=== PATIENT | female | born 1975 | race Caucasian/White ===

== ENCOUNTER 2017-02-24 16:17 | Emergency (ER) | payer SELFPAY ==
[~2017-02-24] VITALS: Ht 165.1 cm; Wt 80.0 kg
[~2017-02-24 16:17] MED LIST: IBUP-232 PO; LORT5TAB PO; Z.0.NO CURRENT MEDS
[2017-02-24 16:29] VITALS: BP 112/60; PULSE 75; RESP 18; TEMP 98.8; O2SAT 100
[2017-02-24] MEDS ORDERED: SODIUM CHLOR 0.9% 1000 ML INJ 1,000 ML IV SCH (18:41)
--- NOTE | 2017-02-24 18:41 | PD ---
HPI Chief Complaint: Abdominal Pain Time Seen by Provider: 18:29 Travel History International Travel<30 days: No Contact w/Intl Traveler<30days: No Traveled to known affect area: No History of Present Illness HPI 42-year-old female presents to the emergency Department with complaint of right lower quadrant abdominal pain that onset at approximately 2 PM today. Denies fever. Reports nausea without vomiting. Denies change in stool, dysuria, urgency, frequency. Denies vaginal discharge, odor. Has not taken any medications to alleviate her symptoms. Tried applying ice to the area with no relief. Reports her pain is aggravated when she was driving in the car using her right leg and going over bumps. History of complete hysterectomy, cholecystectomy, and gastric bypass. Allergies to sulfa, acetaminophen, morphine, oxycodone. Has no other medical complaints. Symptoms are moderate in severity. No other modifying factors or associated signs and symptoms. PFSH Past Medical History Bipolar Disorder: Yes Diminished Hearing: No Gastrointestinal Disorders: Yes (IBS) Reproductive: Yes (endometriosis) ?: Not : 3 Para: 2 Miscarriage: 1 Dilation and Curettage (D&C): Yes (05/05/09) Tubal Ligation: Yes Past Surgical History Cholecystectomy: Yes Hysterectomy: Yes Other Surgery: Yes (LAPROSCOPY 2007 AND 05/05/09) Social History Alcohol Use: No Tobacco Use: Yes (05/31 PPD) Substance Use: No Allergies-Medications (Allergen,Severity, Reaction): Coded Allergies: Sulfa (Sulfonamide Antibiotics) (Unverified Allergy, Severe, SOB, 02/24/17) acetaminophen (Verified Allergy, Severe, RASH, 02/24/17) morphine (Verified Allergy, Severe, ABDOMINAL PAIN , 02/24/17) oxycodone (Verified Allergy, Severe, RASH, 02/24/17) Reported Meds & Prescriptions Reported Meds & Active Scripts Active Lortab 5/500 (Acetaminophen/Hydrocodone Bitart) 5 Mg/500 Mg Tab 1 Tab PO Q4HPRN FOR PAIN Motrin (Ibuprofen) 600 Mg Tab 600 Mg PO TID Reported No Current Meds (Miscellaneous Medication) Misc Review of Systems Except as stated in HPI: all other systems reviewed are Neg Physical Exam Narrative GENERAL: Well-nourished, well-developed female patient, in no acute distress; afebrile; nontoxic appearing SKIN: Warm and dry. HEAD: Atraumatic. Normocephalic. EYES: Pupils equal and round. No scleral icterus. No injection or drainage. ENT: Mucosa pink and moist. Airway patent. NECK: Trachea midline. CARDIOVASCULAR: Regular rate and rhythm. No murmur appreciated. RESPIRATORY: No accessory muscle use. Clear to auscultation. Breath sounds equal bilaterally. GASTROINTESTINAL: Abdomen soft, tenderness on palpation to right lower quadrant , nondistended. Hepatic and splenic margins not palpable. Bowel sounds are active 4 quadrants. Nonrigid. With guarding. BACK: No CVA tenderness. MUSCULOSKELETAL: No obvious deformities. No clubbing. No cyanosis. No edema. NEUROLOGICAL: Awake and alert. Oriented 3. No obvious cranial nerve deficits. Motor grossly within normal limits. Normal speech. PSYCHIATRIC: Appropriate mood and affect; insight and judgment normal. Data Data Last Documented VS Vital Signs Date Time Temp Pulse Resp B/P (MAP) Pulse Ox O2 Delivery O2 Flow Rate FiO2 02/24/17 19:18 98 02/24/17 16:29 98.8 75 18 Room Air Orders Orders Complete Blood Count With Diff (02/24/17 18:41) Comprehensive Metabolic Panel (02/24/17 18:41) Lipase (02/24/17 18:41) Prothrombin Time / Inr (Pt) (02/24/17 18:41) Act Partial Throm Time (Ptt) (02/24/17 18:41) Urinalysis - C+S If Indicated (02/24/17 18:41) Ct Abd/Pel W Iv Contrast(Rout) (02/24/17 18:41) Iv Access Insert/Monitor (02/24/17 18:41) Ecg Monitoring (02/24/17 18:41) Oximetry (02/24/17 18:41) Ondansetron Inj (Zofran Inj) (02/24/17 18:45) Sodium Chlor 0.9% 1000 Ml Inj (Ns 1000 M (02/24/17 18:41) Sodium Chloride 0.9% Flush (Ns Flush) (02/24/17 18:45) Ketorolac Inj (Toradol Inj) (02/24/17 18:45) Ed Urine Pregnancytest Poc (02/24/17 18:41) Oral Contrast - Adult (02/24/17 18:47) Diatrizoate Liq (Md [place] Hanson) (02/24/17 19:21) Labs Laboratory Tests Test 02/24/17 19:00 White Blood Count 5.3 TH/MM3 Red Blood Count 3.72 MIL/MM3 Hemoglobin 12.3 GM/DL Hematocrit 36.8 % Mean Corpuscular Volume 99.0 FL Mean Corpuscular Hemoglobin 33.0 PG Mean Corpuscular Hemoglobin Concent 33.3 % Red Cell Distribution Width 13.8 % Platelet Count 160 TH/MM3 Mean Platelet Volume 10.3 FL Neutrophils (%) (Auto) 52.0 % Lymphocytes (%) (Auto) 37.9 % Monocytes (%) (Auto) 6.8 % Eosinophils (%) (Auto) 2.6 % Basophils (%) (Auto) 0.7 % Neutrophils # (Auto) 2.8 TH/MM3 Lymphocytes # (Auto) 2.0 TH/MM3 Monocytes # (Auto) 0.4 TH/MM3 Eosinophils # (Auto) 0.1 TH/MM3 Basophils # (Auto) 0.0 TH/MM3 CBC Comment DIFF FINAL Differential Comment Prothrombin Time 10.7 SEC Prothromb Time International Ratio 1.0 RATIO Activated Partial Thromboplast Time 27.4 SEC Urine Color YELLOW Urine Turbidity CLEAR Urine pH 6.5 Urine Specific Thermal 1.027 Urine Protein TRACE mg/dL Urine Glucose (UA) NEG mg/dL Urine Ketones NEG mg/dL Urine Occult Blood NEG Urine Nitrite NEG Urine Bilirubin NEG Urine Urobilinogen 2.0 MG/DL Urine Leukocyte Esterase NEG Urine RBC 3 /hpf Urine WBC 1 /hpf Urine Squamous Epithelial Cells <1 /hpf Urine Mucus FEW /lpf Microscopic Urinalysis Comment CULT NOT INDICATED Blood Urea Nitrogen 18 MG/DL Creatinine 1.17 MG/DL Random Glucose 87 MG/DL Total Protein 6.5 GM/DL Albumin 3.4 GM/DL Calcium Level 8.2 MG/DL Alkaline Phosphatase 47 U/L Aspartate Amino Transf (AST/SGOT) 9 U/L Alanine Aminotransferase (ALT/SGPT) 13 U/L Total Bilirubin 0.2 MG/DL Sodium Level 141 MEQ/L Potassium Level 4.1 MEQ/L Chloride Level 109 MEQ/L Carbon Dioxide Level 27.0 MEQ/L Anion Gap 5 MEQ/L Estimat Glomerular Filtration Rate 51 ML/MIN Lipase 113 U/L [facility] Medical Decision Making Medical Screen Exam Complete: Yes Emergency Medical Condition: Yes Medical Record Reviewed: Yes Differential Diagnosis Appendicitis, gastritis, Narrative Course 42-year-old female with right lower quadrant abdominal pain. Patient is afebrile and nontoxic-appearing. Denies fever. Reports nausea without vomiting. History of complete hysterectomy, cholecystectomy, and gastric bypass. IV site obtained. CBC, CMP, lipase, urinalysis, UPT, CT abdomen/ pelvis ordered. Toradol, normal saline bolus, Zofran administered in the ER. 1957: CBC, CMP, lipase, coags, urinalysis unremarkable. 2100: Report given to Marquise Cao PAC. See his note for final patient disposition. Thania Maldonado Feb 24, 2017 18:41
[2017-02-24] MEDS ORDERED: KETOROLAC TROMETHAMINE 30 MG/ML (IVP) VIAL IVP ONE (18:45)
[2017-02-24] MEDS ORDERED: SODIUM CHLORIDE 0.9% FLUSH 10 ML FLUSH IV FLUSH PRN (18:45)
[2017-02-24] MEDS ORDERED: ONDANSETRON HCL 4 MG/2 ML VIAL IVP ONE (18:45)
[2017-02-24 19:18] VITALS: O2SAT 98
[2017-02-24] MEDS ORDERED: DIATRIZOATE MEGLUM/DIATRIZOATE SOD 9 ML CUP ONE (19:21)
[2017-02-24 19:29] LABS: BLOOD, URINE NEG (NEG); COMMENT (UR) CULT NOT INDICATED; CULTURE IF INDICATED CULT NOT INDICATED; GLUCOSE,URINE NEG (NEG); KETONE, URINE NEG (NEG); MUCUS URINE FEW /lpf (OCC); NITRITE,URINE NEG (NEG); PH, URINE 6.5 (5.0-8.5); SQUAMOUS EPITHELIAL CELL URINE <1 /hpf (0-5); URINE COLOR YELLOW (YELLW/STRAW)
[2017-02-24 19:30] LABS: AUTOMATED NEUTROPHIL # 2.8 TH/MM3 (1.8-7.7); BASOPHIL % 0.7 % (0.0-2.0); EOSINOPHIL # 0.1 TH/MM3 (0-0.4); EOSINOPHIL % 2.6 % (0.0-4.0); HEMATOCRIT 36.8 % (35.0-46.0); HEMO FLAGS DIFF FINAL; LYMPH % 37.9 % (9.0-44.0); MEAN CORPUSCULAR HGB CONC 33.3 % (32.0-36.0); MONO % 6.8 % (0.0-8.0); PLATELET COUNT 160 TH/MM3 (150-450); RED BLOOD COUNT 3.72 MIL/MM3 (4.00-5.30); RED CELL DISTRIBUTION WIDTH 13.8 % (11.6-17.2); WHITE BLOOD COUNT 5.3 TH/MM3 (4.0-11.0)
[2017-02-24 19:40] LABS: APTT (PATIENT) 27.4 SEC (24.3-30.1); PROTHROMBIN TIME - PATIENT 10.7 SEC (9.8-11.6)
[2017-02-24 19:53] LABS: ALT (GPT) 13 U/L (10-53); ANION GAP 5 MEQ/L (5-15); AST (GOT) 9 U/L (15-37); BLOOD UREA NITROGEN 18 MG/DL (7-18); CHLORIDE 109 MEQ/L (98-107); GLOMERULAR FILTRATION RATE 51 ML/MIN (>89); POTASSIUM 4.1 MEQ/L (3.5-5.1); SODIUM (NA) 141 MEQ/L (136-145)
[2017-02-24 19:56] LABS: ALKALINE PHOSPHATASE 47 U/L (45-117); TOTAL BILIRUBIN ADULT 0.2 MG/DL (0.2-1.0)
[2017-02-24] MEDS ORDERED: IOHEXOL 350 MG/ML 10 ML VIAL (for RAD DIAG) IVCONTRAST ONE (20:44)
--- NOTE | 2017-02-24 21:02 | RADRPT ---
EXAM DATE/TIME: 02/24/2017 20:40 [place] COMPARISON: No previous studies available for comparison. INDICATIONS : Right lower quadrant pain. IV CONTRAST: 86 cc Omnipaque 350 (iohexol) IV ORAL CONTRAST: Prescribed oral contrast ingested. RADIATION DOSE: 11.77 CTDIvol (mGy) MEDICAL HISTORY : None SURGICAL HISTORY : Cholecystectomy. Tubal ligation.Hysterectomy. ENCOUNTER: Initial ACUITY: 1 day PAIN SCALE: 6/10 LOCATION: Right lower quadrant TECHNIQUE: Volumetric scanning of the abdomen and pelvis was performed. Using automated exposure control and ad justment of the mA and/or kV according to patient size, radiation dose was kept as low as reasonably achievable to obtain optimal diagnostic quality images. DICOM format image data is available electro nically for review and comparison. FINDINGS: LOWER LUNGS: The visualized lower lungs are clear. LIVER: Homogeneous density without lesion. There is no dilation of the biliary tree. Previous cholecystecto my. SPLEEN: Normal size without lesion. PANCREAS: Within normal limits. KIDNEYS: Normal in size and shape. There is no mass, stone or hydronephrosis. ADRENAL GLANDS: Within normal limits. VASCULAR: There is no aortic aneurysm. BOWEL/MESENTERY: The stomach, small bowel, and colon demonstrate no acute abnormality. There is no free intraperitone al air or fluid. Appendix well-visualized and normal. Previous gastric bypass. No evidence of an acut e complication. ABDOMINAL WALL: Within normal limits. RETROPERITONEUM: There is no lymphadenopathy. BLADDER: No wall thickening or mass. REPRODUCTIVE: Within normal limits. INGUINAL: There is no lymphadenopathy or hernia. MUSCULOSKELETAL: Within normal limits for patient age. CONCLUSION: No obstruction or acute inflammatory changes. The appendix is normal. Tuan Braun MD on February 24, 2017 at 20:58 Board Certified Radiologist. This report was verified electronically.
[2017-02-24] MEDS ORDERED: HYDROmorphone HCL PF 1 MG/ML VIAL IV PUSH ONE (21:15)
[2017-02-24] MEDS ORDERED: TRAM50TA PO (21:59)
--- NOTE | 2017-02-24 21:59 | PD ---
Data Data Last Documented VS Vital Signs Date Time Temp Pulse Resp B/P (MAP) Pulse Ox O2 Delivery O2 Flow Rate FiO2 02/24/17 19:18 98 02/24/17 16:29 98.8 75 18 Room Air Orders Orders Complete Blood Count With Diff (02/24/17 18:41) Comprehensive Metabolic Panel (02/24/17 18:41) Lipase (02/24/17 18:41) Prothrombin Time / Inr (Pt) (02/24/17 18:41) Act Partial Throm Time (Ptt) (02/24/17 18:41) Urinalysis - C+S If Indicated (02/24/17 18:41) Ct Abd/Pel W Iv Contrast(Rout) (02/24/17 18:41) Iv Access Insert/Monitor (02/24/17 18:41) Ecg Monitoring (02/24/17 18:41) Oximetry (02/24/17 18:41) Ondansetron Inj (Zofran Inj) (02/24/17 18:45) Sodium Chlor 0.9% 1000 Ml Inj (Ns 1000 M (02/24/17 18:41) Sodium Chloride 0.9% Flush (Ns Flush) (02/24/17 18:45) Ketorolac Inj (Toradol Inj) (02/24/17 18:45) Ed Urine Pregnancytest Poc (02/24/17 18:41) Oral Contrast - Adult (02/24/17 18:47) Diatrizoate Liq ( Gastroview Liq) (02/24/17 19:21) Iohexol 350 Inj (Omnipaque 350 Inj) (02/24/17 20:44) Hydromorphone Pf Inj (Dilaudid Pf Inj) (02/24/17 21:15) Labs Laboratory Tests Test 02/24/17 19:00 White Blood Count 5.3 TH/MM3 Red Blood Count 3.72 MIL/MM3 Hemoglobin 12.3 GM/DL Hematocrit 36.8 % Mean Corpuscular Volume 99.0 FL Mean Corpuscular Hemoglobin 33.0 PG Mean Corpuscular Hemoglobin Concent 33.3 % Red Cell Distribution Width 13.8 % Platelet Count 160 TH/MM3 Mean Platelet Volume 10.3 FL Neutrophils (%) (Auto) 52.0 % Lymphocytes (%) (Auto) 37.9 % Monocytes (%) (Auto) 6.8 % Eosinophils (%) (Auto) 2.6 % Basophils (%) (Auto) 0.7 % Neutrophils # (Auto) 2.8 TH/MM3 Lymphocytes # (Auto) 2.0 TH/MM3 Monocytes # (Auto) 0.4 TH/MM3 Eosinophils # (Auto) 0.1 TH/MM3 Basophils # (Auto) 0.0 TH/MM3 CBC Comment DIFF FINAL Differential Comment Prothrombin Time 10.7 SEC Prothromb Time International Ratio 1.0 RATIO Activated Partial Thromboplast Time 27.4 SEC Urine Color YELLOW Urine Turbidity CLEAR Urine pH 6.5 Urine Specific [place] 1.027 Urine Protein TRACE mg/dL Urine Glucose (UA) NEG mg/dL Urine Ketones NEG mg/dL Urine Occult Blood NEG Urine Nitrite NEG Urine Bilirubin NEG Urine Urobilinogen 2.0 MG/DL Urine Leukocyte Esterase NEG Urine RBC 3 /hpf Urine WBC 1 /hpf Urine Squamous Epithelial Cells <1 /hpf Urine Mucus FEW /lpf Microscopic Urinalysis Comment CULT NOT INDICATED Blood Urea Nitrogen 18 MG/DL Creatinine 1.17 MG/DL Random Glucose 87 MG/DL Total Protein 6.5 GM/DL Albumin 3.4 GM/DL Calcium Level 8.2 MG/DL Alkaline Phosphatase 47 U/L Aspartate Amino Transf (AST/SGOT) 9 U/L Alanine Aminotransferase (ALT/SGPT) 13 U/L Total Bilirubin 0.2 MG/DL Sodium Level 141 MEQ/L Potassium Level 4.1 MEQ/L Chloride Level 109 MEQ/L Carbon Dioxide Level 27.0 MEQ/L Anion Gap 5 MEQ/L Estimat Glomerular Filtration Rate 51 ML/MIN Lipase 113 U/L [facility] Supervised Visit with SIRIA: Yes Narrative Course I, Dr. Garrido, have reviewed the advance practice practitioner's documentation and am in agreement, met with the patient face to face, made the diagnosis, and the medical decision making was done by me. See her note for further details. Briefly this is a 42-year-old female with history of gastric bypass, total abdominal hysterectomy, cholecystectomy, here for evaluation of right lower quadrant abdominal pain that started today. Pain described as sharp, moderate to severe, worse with movement and palpation. She has felt nauseous but has not vomited. Last bowel movement was earlier today. No urinary symptoms. No fevers or chills. On physical exam the patient does have some right lower quadrant tenderness without peritoneal signs. Vital signs show heart rate 75, blood pressure 112/60, pulse ox 100% on room air , oral temp of 98.8F. ABC is unremarkable and shows WBC 5.3, hemoglobin 12.3, hematocrit 36.8, platelets 160. CMP is essentially unremarkable. Lipase is 113. UA is within normal limits, no hematuria, not suggestive of UTI. CT abdomen pelvis: No obstruction or acute inflammatory change. The appendix is normal. Patient was made aware of all findings per she was given pain medicine with improvement in her pain. Her pain is mainly located over her right lower quadrant. No epigastric pain no vomiting. I do not believe her pain is related to her gastric bypass surgery. Patient feels comfortable being discharged home and following up as an outpatient. I will give her the name of the bariatric surgeon here with him to follow up with. She was also informed to follow-up with a primary care physician this week. She was informed on when to return to the emergency department. She verbalizes understanding and agreement with plan. Diagnosis Primary Impression: Abdominal pain Qualified Codes: R10.31 - Right lower quadrant pain Referrals: Dontae Newman MD 3 days Bariatric surgeon [facility] 3 days Primary Care Physician 3 days Additional Instruction: Follow-up with a primary care physician this week. Follow-up with bariatric surgeon Dr. Alvarez this week. Return to the emergency department for worsening symptoms or any other concerns. Scripts Tramadol (Tramadol) 50 Mg Tab 50 MG PO Q8H Y for PAIN, #15 TAB 0 Refills Prov: Bob Garrido MD 02/24/17 Disposition: 01 DISCHARGE HOME Condition: Stable Bob Garrido MD Feb 24, 2017 21:59
== END 2017-02-24 22:18 | disposition home or self-care (01) ==
LOC: NEPD 16:17
DX: R10.31 Right lower quadrant pain (principal); Z72.0 Tobacco use
CPT/HCPCS: 74177; 80053; 81001; 83690; 84703; 85025; 85610; 85730; 96361; 96374; 96375; 99285; J1170; J1885; J2405; J7030; Q9963; Q9967